=== PATIENT | male | born 1960 | race Caucasian/White ===

== ENCOUNTER 2018-07-11 11:04 | Day surgery (SDC) | payer OTHER ==
[~2018-07-11] VITALS: Ht 180.3 cm; Wt 84.5 kg
== END 2018-07-11 14:44 | disposition home or self-care (01) ==
LOC: ORSCSDS 11:04
PROVIDERS: Internal Medicine Gastroenterology
PROC: 0DBK8ZX Excision of Ascending Colon, Via Natural or Artificial Opening Endoscopic, Diagnostic (ICD-10-PCS; principal; 2018-07-11 12:45)
PROC: 0DBH8ZX Excision of Cecum, Via Natural or Artificial Opening Endoscopic, Diagnostic (ICD-10-PCS; principal; 2018-07-11 12:45)
PROC: 0DBP8ZX Excision of Rectum, Via Natural or Artificial Opening Endoscopic, Diagnostic (ICD-10-PCS; principal; 2018-07-11 12:45)
DX: Z12.11 Encounter for screening for malignant neoplasm of colon (principal); Z80.0 Family history of malignant neoplasm of digestive organs; D12.2 Benign neoplasm of ascending colon; D12.0 Benign neoplasm of cecum; D12.8 Benign neoplasm of rectum; K64.8 Other hemorrhoids; I10 Essential (primary) hypertension
CPT/HCPCS: 88305; J7120

== ENCOUNTER 2021-06-14 08:22 | Day surgery (SDC) | payer OTHER ==
[~2021-06-14] VITALS: Ht 180.3 cm; Wt 84.7 kg
== END 2021-06-14 11:15 | disposition home or self-care (01) ==
LOC: ORSCSDS 08:22
PROVIDERS: Internal Medicine Gastroenterology
PROC: 0DBL8ZX Excision of Transverse Colon, Via Natural or Artificial Opening Endoscopic, Diagnostic (ICD-10-PCS; principal; 2021-06-14 09:45)
PROC: 0DBH8ZX Excision of Cecum, Via Natural or Artificial Opening Endoscopic, Diagnostic (ICD-10-PCS; principal; 2021-06-14 09:45)
PROC: 0DBK8ZX Excision of Ascending Colon, Via Natural or Artificial Opening Endoscopic, Diagnostic (ICD-10-PCS; principal; 2021-06-14 09:45)
DX: Z12.11 Encounter for screening for malignant neoplasm of colon (principal); Z86.010 Personal history of colon polyps; Z80.0 Family history of malignant neoplasm of digestive organs; D12.0 Benign neoplasm of cecum; D12.2 Benign neoplasm of ascending colon; D12.3 Benign neoplasm of transverse colon
CPT/HCPCS: 88305; J2704; J7120

== ENCOUNTER → 2023-08-23 | Outpatient (CLI) | payer OTHER | LOC: LAB 07:47 → LAB SHORT 07:47 | DX: D49.0 Neoplasm of unspecified behavior of digestive system (principal) | CPT/HCPCS: 88305; 88312 ==

== ENCOUNTER 2024-06-25 08:50 | Day surgery (SDC) | payer OTHER ==
[~2024-06-25] VITALS: Ht 180.3 cm; Wt 89.1 kg
[~2024-06-25 08:50] MED LIST: Lactated Ringer's 1,000 ML IV ONE; propofoL 50 ML IV ONE
[2024-06-25] MEDS ORDERED: Lactated Ringer's 1,000 ML IV ONE (09:34)
[2024-06-25 10:39] VITALS: BP 112/75
== END 2024-06-25 10:30 | disposition home or self-care (01) ==
LOC: ORSCSDS 08:50
PROVIDERS: Internal Medicine Gastroenterology
PROC: 0DJD8ZZ Inspection of Lower Intestinal Tract, Via Natural or Artificial Opening Endoscopic (ICD-10-PCS; principal; 2024-06-25 10:15)
DX: Z12.11 Encounter for screening for malignant neoplasm of colon (principal); Z86.0100 Personal history of colon polyps, unspecified; Z80.0 Family history of malignant neoplasm of digestive organs
CPT/HCPCS: J2704; J7120